=== PATIENT | male | born 2000 | race Caucasian/White ===

== ENCOUNTER 2021-11-03 13:42 | Emergency (ER) | payer OTHER ==
[~2021-11-03] VITALS: Ht 190.5 cm; Wt 140.6 kg
[2021-11-03 15:16] LABS: INFLUENZA A ANTIGEN Negative (Negative); INFLUENZA B ANTIGEN Negative (Negative)
[2021-11-03] MEDS ORDERED: AZITHROMYCIN 2250 MG PO (15:39)
[2021-11-03] MEDS ORDERED: CEFPODOXIME PR200 M1 PO (15:39)
[2021-11-03 15:50] VITALS: BP 144/65
== END 2021-11-03 15:51 | disposition home or self-care (01) ==
LOC: M.ERS 13:42
PROVIDERS: Emergency Medicine
DX: J18.9 Pneumonia, unspecified organism (principal)

== ENCOUNTER 2021-11-08 22:41 | Inpatient (IN) | payer OTHER ==
[~2021-11-08] VITALS: Ht 190.5 cm; Wt 140.6 kg
[~2021-11-08 22:41] MED LIST: AZITHROMYCIN 2250 MG PO; CEFPODOXIME PR200 M1 PO
[2021-11-08 22:49] VITALS: BP 120/72
[2021-11-08 23:38] LABS: ABSOLUTE LYMPHOCYTES 0.7 thou/uL (0.8-5.3); ABSOLUTE MONOCYTES 0.3 thou/uL (0.0-1.2); ABSOLUTE NEUTROPHILS 3.6 thou/uL (1.6-8.1); BASOPHILS 0.5 %; HEMATOCRIT 41.6 % (42.0-52.0); HEMOGLOBIN 13.9 gm/dL (14.0-18.0); MCH 28.3 pg (26.0-34.0); MCHC 33.5 g/dL (28.0-37.0); MCV 84.5 fL (80.0-100.0); MONOCYTES 6.7 %; NUCLEATED RBCS 0 /100WBC; PLATELET COUNT* 151 thou/uL (150-400); POLYS 76.8 %; RBC 4.92 mil/uL (4.50-6.00); RDW-CV 12.8 % (10.5-14.5); WBC 4.7 thou/uL (4.0-11.0)
[2021-11-08 23:46] LABS: CALCIUM 7.9 mg/dL (8.5-10.1); POTASSIUM 3.5 mmol/L (3.5-5.1)
[2021-11-09] VITALS (7 sets, daily range): BP systolic 120–155; BP diastolic 72–88
[2021-11-09 00:02] LABS: ALBUMIN 3.4 g/dL (3.4-5.0); TOTAL BILIRUBIN 0.7 mg/dL (<0.1-1.0); TOTAL PROTEIN 7.3 g/dL (6.4-8.2)
[2021-11-09] MEDS ORDERED: DEXAMETHASONE 44 M1 PO (08:55)
[2021-11-09] MEDS ORDERED: GUAIFEN-CODEINE10 ML PO (08:55)
[2021-11-09] MEDS ORDERED: TESSALON PERLE100 MG PO (08:55)
[2021-11-09 10:06] LABS: URINE BILIRUBIN NEGATIVE (Negative); URINE BLOOD NEGATIVE (Negative); URINE CLARITY CLEAR; URINE COLOR YELLOW; URINE GLUCOSE-RANDOM NEGATIVE (Negative); URINE LEUKOCYTES-REFLEX NEGATIVE (Negative); URINE NITRITE-REFLEX NEGATIVE (Negative); URINE PROTEIN 1+ (Negative); URINE SPECIFIC GRAVITY >= 1.030 (1.005-1.030); URINE UROBILINOGEN 0.2 E.U./dl (0.2-1.0)
[2021-11-09 10:08] LABS: URINE KETONES 3+ (Negative)
--- NOTE | 2021-11-09 10:57 | EKG ---
[place] [address] ELECTROCARDIOGRAM REPORT Name: CHELKIM Room: [place] [address] ADM [facility]#: [id number] Admission: 11/09/21 Attend Phys: Jose Morton, Discharge: Date of : 2 Date of Service: 11/08/21 2323 Report #: [id number] THIS REPORT FOR: //name// [facility] ED Test Date: 2021-11-08 Test Time: 23:23:18 Pat Name: KIM MILLIGAN Department: Room: [facility] Gender: M Rn Managed Care: JENA : 2000 Requested By: Krystina Rick Order Number: [id number] MD: Andrea Rios Measurements Intervals [place] Rate: 109 P: 39 WV: 144 QRS: 16 QRSD: 117 T: 28 QT: 330 QTc: 445 Interpretive Statements Sinus tachycardia Incomplete right bundle branch block ST elev, probable normal early repol pattern No previous ECG available for comparison Electronically Signed On 11-09-2021 10:57:37 PROJECT DESIGNER by Andrea Rios [email or web address] <ELECTRONICALLY SIGNED> By: Andrea Rios MD, [facility] 11/09/21 1057 2323 2323 Andrea Rios MD, [facility] /EPI
[2021-11-10 00:30] VITALS: BP 154/84
[2021-11-10 04:00] VITALS: BP 102/66
[2021-11-10 05:50] LABS: HEMATOCRIT 42.5 % (42.0-52.0); MCH 28.2 pg (26.0-34.0); MCV 85.4 fL (80.0-100.0); MPV 8.6 fl. (7.2-11.1); RBC 4.98 mil/uL (4.50-6.00); RDW-CV 12.9 % (10.5-14.5); WBC 6.9 thou/uL (4.0-11.0)
[2021-11-10 06:05] LABS: CALCIUM 8.5 mg/dL (8.5-10.1); POTASSIUM 3.9 mmol/L (3.5-5.1)
[2021-11-10 08:00] VITALS: BP 114/59; BP 140/70
[2021-11-10 12:00] VITALS: BP 114/59; BP 137/79
[2021-11-10 15:45] VITALS: BP 120/75
[2021-11-10 20:00] VITALS: BP 125/71
[2021-11-11] VITALS: BP 121/70
[2021-11-11 04:27] LABS: HEMATOCRIT 38.7 % (42.0-52.0); HEMOGLOBIN 13.1 gm/dL (14.0-18.0); MCH 28.6 pg (26.0-34.0); MCHC 33.8 g/dL (28.0-37.0); MCV 84.7 fL (80.0-100.0); MPV 8.8 fl. (7.2-11.1); RBC 4.56 mil/uL (4.50-6.00); RDW-CV 13.1 % (10.5-14.5); WBC 6.1 thou/uL (4.0-11.0)
[2021-11-11 04:45] VITALS: BP 139/87
[2021-11-11 04:57] LABS: CALCIUM 8.1 mg/dL (8.5-10.1); CREATININE 0.8 mg/dL (0.6-1.3); POTASSIUM 3.3 mmol/L (3.5-5.1)
[2021-11-11 08:10] VITALS: BP 120/80
[2021-11-11 12:00] VITALS: BP 132/75
[2021-11-11 16:00] VITALS: BP 138/78
[2021-11-11 17:47] VITALS: BP 138/78
== END 2021-11-11 18:41 | disposition home or self-care (01) | DRG 177 ==
LOC: M.ERS 22:41 → M.TBA-ER 11-09 00:11 → M.ORTHSURG 11-09 17:02
PROVIDERS: Emergency Medicine; Family Medicine; ADMIT Internal Medicine; ATTEND Internal Medicine
PROC: 5A0935A Assistance with Respiratory Ventilation, Less than 24 Consecutive Hours, High Flow/Velocity Cannula (ICD-10-PCS; principal; 2021-11-09)
PROC: 5A0935A Assistance with Respiratory Ventilation, Less than 24 Consecutive Hours, High Flow/Velocity Cannula (ICD-10-PCS; 2021-11-10)
PROC: 5A0935A Assistance with Respiratory Ventilation, Less than 24 Consecutive Hours, High Flow/Velocity Cannula (ICD-10-PCS; 2021-11-11)
DX: U07.1 COVID-19 (principal); J12.82 Pneumonia due to coronavirus disease 2019; J96.01 Acute respiratory failure with hypoxia; E66.01 Morbid (severe) obesity due to excess calories; Z68.38 Body mass index [BMI] 38.0-38.9, adult